=== PATIENT | female | born 1965 | race African-American/Black ===

== ENCOUNTER 2016-06-28 11:40 | Emergency (ER) | payer SELFPAY ==
[~2016-06-28] VITALS: Ht 165.1 cm; Wt 65.8 kg
[2016-06-28 11:46] VITALS: BP 123/82
[2016-06-28] MEDS ORDERED: IBUPROFEN 400 MG TABLET ONE (12:48)
--- NOTE | 2016-06-28 12:56 | NUR ---
ibuprofen 400mg administered per verbal order by dr ley
== END 2016-06-28 13:20 | disposition home or self-care (01) ==
LOC: ER 11:43
DX: S80.02XA Contusion of left knee, initial encounter (principal); V49.50XA Passenger injured in collision with unspecified motor vehicles in traffic accident, initial encounter; Y93.89 Activity, other specified; Y92.413 State road as the place of occurrence of the external cause; Y99.8 Other external cause status
CPT/HCPCS: 73564-TC; A4606; Z7610